=== PATIENT | male | born 1990 | race Caucasian/White ===

== ENCOUNTER 2016-12-05 16:48 | Emergency (ER) | payer OTHER ==
[2016-12-05 19:20] LABS: % IMMATURE GRANULYOCYTES 0.3 % (0.0-1.1); ABSOLUTE IMMATURE GRANULOCYTES 0.03 10^3/uL (0.00-0.10); ADD DIFF? NO; ADD MORPH? NO; ADD SCAN? NO; ATYPICAL LYMPHOCYTE FLAG 0 (0-99); FRAGMENT RBC FLAG 0 (0-99); HEMATOCRIT 44.8 % (40.0-51.0); HEMOGLOBIN 15.1 g/dL (13.7-17.5); LEFT SHIFT FLG 0 (0-99); LIPEMIA HEMOLYSIS FLAG 80 (0-99); MEAN CELL HEMOGLOBIN 29.5 pg (27.9-34.1); MEAN CELL HEMOGLOBIN CONCENTR. 33.7 g/dL (32.4-36.7); MEAN CELL VOLUME 87.5 fL (81.5-99.8); MEAN PLATELET VOLUME 10.2 fL (8.7-11.7); PLATELET CLUMPS FLAG 0 (0-99); PLATELET COUNT 275 10^3/uL (150-400); RED BLOOD CELL COUNT 5.12 10^6/uL (4.40-6.38); RED CELL DISTRIBUTION WIDTH 13.7 % (11.5-15.2)
[2016-12-05 19:41] LABS: ANION GAP 14 mEq/L (8-16); CALCIUM 10.6 mg/dL (8.5-10.4); CARBON DIOXIDE 26 mEq/l (22-31); CHLORIDE 102 mEq/L (97-110); ETHANOL SERUM < 10 mg/dL (0-10); GLOMERULAR FILTRATION RATE > 60; GLUCOSE 93 mg/dL (70-100); POTASSIUM 3.8 mEq/L (3.5-5.2); SODIUM 142 mEq/L (134-144)
--- NOTE | 2016-12-05 23:53 | EDPHY ---
H & P Smoking Status: Current every day smoker Time Seen by Provider: 12/05/16 16:59 HPI/ROS: CHIEF COMPLAINT: Depression, anxiety HISTORY OF PRESENT ILLNESS: 26-year-old male presents to the emergency department complaining of ongoing depression and anxiety. The patient feels suicidal. His plan is to jump in front of a moving car. He was just released from [facility] today where he has been for the last week. He went to his aftercare appointment at [facility] and had a 2 hour evaluation there. The patient then presented to the emergency department for evaluation. Patient states that he continues to feel suicidal. Denies homicidal ideation. He does sometimes hear voices. He denies substance abuse or alcohol. Currently no physical complaints. REVIEW OF SYSTEMS: Constitutional: No fever, no chills. Eyes: No double or blurry vision. ENT: No sore throat. Respiratory: No cough, no shortness of breath. Cardiac: No chest pain. Gastrointestinal: No abdominal pain, vomiting or diarrhea. Genitourinary: No dysuria. Musculoskeletal: No neck or back pain. Skin: No rashes. Neurological: No headache. (Marina Anne) 2300 care assumed by me from DAVI Anne pending placement. (Renard Berrios) Past Medical/Surgical History: Depression, anxiety (Marina Anne) Social History: Single (AnabellemelvaMarina M) Physical Exam: General Appearance: Alert, no distress. Initial heart rate 114, blood pressure 137/100. Very flat affect. No physical signs of trauma to his head. Eyes: Pupils equal and round. Extraocular motions are all intact. ENT: Mouth: Mucous membranes moist. Respiratory: No wheezing, rhonchi, or rales, lungs are clear to auscultation. Cardiovascular: Regular rate and rhythm. Gastrointestinal: Abdomen is soft and nontender, no masses, no rebound or guarding, bowel sounds normal. Neurological: Alert and oriented x 3, cranial nerves II through XII grossly intact Skin: Warm and dry, no rashes. Musculoskeletal: Nontender to palpate along the cervical, thoracic or lumbar spine. Neck is supple. Extremities: Full range of motion and no peripheral edema. Psychiatric: Patient is oriented X 3, there is no agitation. (Marina Anne) Constitutional: Initial Vital Signs Temperature (C) 37.1 C 12/05/16 16:56 Heart Rate 114 H 12/05/16 16:56 Respiratory Rate 22 H 12/05/16 16:56 Blood Pressure 137/100 H 12/05/16 16:56 O2 Sat (%) 94 12/05/16 16:56 O2 Delivery Mode Room Air Allergies/Adverse Reactions: No Known Allergies Allergy (Verified 12/05/16 16:55) Home Medications: Medication Instructions Recorded Paxil 12/05/16 Prazosin HCl 12/05/16 Medical Decision Making ED Course/Re-evaluation: 26-year-old male presents to the emergency department feeling depressed and suicidal. He was just released from [facility] today. I also spoke with [facility] where he just had his intake evaluation. The patient apparently has been hospitalized 3 times since October. He also has received ECT in the past for his depression. The patient continues to feel depressed and suicidal. His plan is to jump in front of a moving car. The patient was formally evaluated by mental health and placed on an M1 hold. They are currently looking for inpatient placement. (Marina Anne) 2300 Care assumed by me pending placement. [address] Hitchcock pending placement. No issues during my care this patient overnight. (Renard Berrios) Differential Diagnosis: Depression including functional and major depression, situational depression, medication side effect, drugs and alcohol abuse. (Marina Anne) Other Provider: I assumed care of the patient at 0700 Update at 11:30 a.m.: The patient has been accepted by [facility] for inpatient psychiatric hospitalization at the [facility]. I have filled out the EMTALA transfer form. (Antonio Hitchcock) Care Turn Over: Care will be turned over to Dr. Stevenson Berrios at midnight for disposition and plan. (Marina Anne) - Data Points Laboratory Results: Laboratory Results 12/05/16 19:11 12/05/16 19:11 Medications Given: Discontinued Medications [place] Carbonate (Lithobid) 1,200 mg PO EDNOW ONE Stop: 12/06/16 01:04 Last Admin: 12/06/16 01:44 Dose: 1,200 mg Prazosin HCl (Minipress) 3 mg PO EDNOW ONE Stop: 12/06/16 01:05 Last Admin: 12/06/16 01:44 Dose: 3 mg Quetiapine Fumarate (Seroquel) 400 mg PO EDNOW ONE Stop: 12/06/16 01:31 Last Admin: 12/06/16 01:44 Dose: 400 mg Zolpidem Tartrate (Ambien) 10 mg PO EDNOW ONE Stop: 12/06/16 01:05 Last Admin: 12/06/16 01:10 Dose: 10 mg Departure - Departure Disposition: Other Psych, Not [place] Clinical Impression: Suicidal ideation, Depression Condition: Good Referrals: UNKNOWN,DOCTOR [Other] - As per Instructions
[2016-12-06 00:12] VITALS: RESP 16; O2SAT 96
[2016-12-06 00:31] LABS: LITHIUM 0.6 mEq/L (0.6-1.2)
[2016-12-06] MEDS ORDERED: LITHIUM CARBONATE ER 300 MG TAB PO ONE (01:03)
[2016-12-06] MEDS ORDERED: PRAZOSIN HCL 1 MG CAP PO ONE (01:04)
[2016-12-06] MEDS ORDERED: ZOLPIDEM TARTRATE 5 MG TAB PO ONE (01:04)
[2016-12-06] MEDS ORDERED: QUEtiapine FUMARATE 300 MG TAB PO ONE (01:04)
[2016-12-06] MEDS ORDERED: QUEtiapine FUMARATE 200 MG TAB PO ONE (01:30)
[2016-12-06 15:58] VITALS: BP 118/85; PULSE 126; TEMP 98.2
== END 2016-12-06 15:55 ==
DX: R45.851 Suicidal ideations (principal); F32.9 Major depressive disorder, single episode, unspecified; F17.200 Nicotine dependence, unspecified, uncomplicated
CPT/HCPCS: 80305; G0480